=== PATIENT | male | born 1945 | race Caucasian/White ===

== ENCOUNTER → 2021-02-25 | Outpatient (CLI) | payer OTHER | LOC: RAD 11:54 | PROVIDERS: ATTEND Family Medicine | DX: R91.8 Other nonspecific abnormal finding of lung field (principal) ==

== ENCOUNTER → 2021-09-03 | Outpatient (CLI) | payer OTHER | LOC: RAD 12:12 | PROVIDERS: ATTEND Family Medicine | DX: R05.9 Cough, unspecified (principal) ==